=== PATIENT | female | born 1985 | race Caucasian/White ===

== ENCOUNTER 2017-06-21 10:20 | Emergency (ER) | payer SELFPAY ==
[2017-06-21] MEDS ORDERED: Ibuprofen 800 MG TAB ONE (11:10)
[2017-06-21] MEDS ORDERED: Penicillin V Potassium 250 MG TAB ONE (11:10)
[2017-06-21] MEDS ORDERED: HYDROcodone/Acetaminophen 5/325 mg Tablet ONE (11:10)
== END 2017-06-21 11:32 | disposition home or self-care (01) ==
LOC: MADERS 10:20
DX: K02.9 Dental caries, unspecified (principal); F17.210 Nicotine dependence, cigarettes, uncomplicated
CPT/HCPCS: 99282

== ENCOUNTER 2018-11-08 00:40 | Emergency (ER) | payer SELFPAY ==
[2018-11-08] MEDS ORDERED: Ketorolac Tromethamine 30 MG/ML VIAL ONE (00:55)
== END 2018-11-08 01:15 | disposition home or self-care (01) ==
LOC: MADERS 00:40
DX: K02.9 Dental caries, unspecified (principal); F17.210 Nicotine dependence, cigarettes, uncomplicated
CPT/HCPCS: 96372; J1885

== ENCOUNTER 2020-08-15 13:43 | Emergency (ER) | payer SELFPAY | END 2020-08-15 14:26 | disposition home or self-care (01) | LOC: MADERS 13:43 | DX: K08.89 Other specified disorders of teeth and supporting structures (principal); F17.210 Nicotine dependence, cigarettes, uncomplicated | CPT/HCPCS: 99282 ==

== ENCOUNTER 2020-11-29 14:57 | Emergency (ER) | payer SELFPAY ==
[2020-11-29] MEDS ORDERED: Clindamycin 150 MG CAP ONE (15:23)
== END 2020-11-29 15:31 | disposition home or self-care (01) ==
LOC: MADERS 14:57
DX: L01.00 Impetigo, unspecified (principal); F17.210 Nicotine dependence, cigarettes, uncomplicated
CPT/HCPCS: 99283

== ENCOUNTER 2022-05-31 14:10 | Emergency (ER) | payer SELFPAY ==
[2022-05-31] MEDS ORDERED: Ondansetron ODT 4 MG TAB ONE (14:38)
[2022-05-31 14:46] LABS: Bilirubin Negative (Negative); Blood, Urine Moderate (Negative); Clarity Slightly Cloudy (Clear); Glucose, Urine (Dipstick) Negative (Negative); Ketone, Urine Negative (Negative); Leukocyte Small (Negative); Nitrite Positive (Negative); Protein, Urine (Dipstick) 100 mg/dL (Neg-Trace); Specific Gravity, Urine 1.025 (1.005-1.030); pH, Urine 5.5 (5.0-9.0)
[2022-05-31 14:50] LABS: Bacteria/HPF 1+ HPF (None Seen); RBC/HPF 21-50 HPF (0-3); WBC/HPF Greater Than 50 HPF (0-3)
[2022-05-31 14:56] LABS: Pregnancy Test - Urine (BHCG) Negative (Negative); Pregu Control Background? CLEAR/WHITE (CLR/WHITE); Pregu Control Bar Appear? YES (CONTROL BAR); Specific Gravity 1.025 (1.002-1.036)
[2022-05-31] MEDS ORDERED: cefTRIAXone\\ROCEPHIN 1 GM VIAL ONE (15:00)
[2022-05-31] MEDS ORDERED: Lidocaine 1% (PF) 30 ML VIAL ONE (15:00)
[2022-05-31] MEDS ORDERED: Ibuprofen 600 MG TAB ONE (15:00)
[2022-05-31] MEDS ORDERED: Ciprofloxacin 500 MG TAB ONE (15:01)
== END 2022-05-31 15:24 | disposition home or self-care (01) ==
LOC: MADERS 14:10
DX: N10 Acute pyelonephritis (principal); F17.210 Nicotine dependence, cigarettes, uncomplicated
CPT/HCPCS: 81003; 81015; 81025; 87077; 87086; 87186; 87804; 96372; 99283; J0696; J2001; Q0162